=== PATIENT | female | born 1955 | race American Indian/Alaskan Native ===

== ENCOUNTER 2016-09-26 17:30 | Emergency (ER) | payer MEDICAID ==
[2016-09-26 17:39] VITALS: BP 160/85; PULSE 95; RESP 16; TEMP 98.7; O2SAT 100
--- NOTE | 2016-09-26 18:19 | ED PDOC ---
HPI: General Adult Time Seen by Provider: 09/26/16 18:00 Chief Complaint (Nursing): Finger,Hand,&Wrist History Per: Patient (Swelling lower ext bilat right>left x 4 days. Denies chest pain or SOB. Chills but no fever. Intermittent calf pain. Has had intermittent left hand numbness but none today.) Onset/Duration Of Symptoms: Days (4) Current Symptoms Are (Timing): Still Present Severity: Mild Pain Scale Rating Of: 2 Past Medical History Vital Signs: Last Vital Signs Temp 98.7 F 09/26/16 17:35 Pulse 95 H 09/26/16 17:35 Resp 16 09/26/16 17:35 BP 160/85 H 09/26/16 17:35 Pulse Ox 100 09/26/16 18:20 - Medical History PMH: Asthma, HTN, Hyperlipidemia, Hyperthyroidism, Hypothyroidism - Family History Family History: States: Unknown Family Hx - Home Medications Home Medications: Ambulatory Orders Medication Instructions Recorded Albuterol HFA [Ventolin HFA 90 2 puff IH Q4 PRN #1 inh 06/08/16 mcg/actuation (8 g)] Azithromycin [Z-Shaheen] 250 mg PO DAILY #6 tab 06/08/16 Prednisone 50 mg PO DAILY #5 tablet 06/08/16 - Allergies Allergies/Adverse Reactions: Allergies Allergy/AdvReac Type Severity Reaction Status Date / Time No Known Allergies Allergy Verified 09/26/16 17:34 Review of Systems ROS Statement: Except As Marked, All Systems Reviewed And Found Negative Constitutional: Positive for: Chills. Negative for: Fever Cardiovascular: Negative for: Chest Pain Respiratory: Negative for: Shortness of Breath Musculoskeletal: Positive for: Leg Pain, Other (leg swelling) Physical Exam - Reviewed Nursing Documentation Reviewed: Yes Vital Signs Reviewed: Yes - Physical Exam Appears: Positive for: Non-toxic, No Acute Distress Head Exam: Positive for: ATRAUMATIC, NORMAL INSPECTION, NORMOCEPHALIC Skin: Positive for: Normal Color, Warm, DRY Eye Exam: Positive for: EOMI, Normal appearance, PERRL ENT: Positive for: Normal ENT Inspection Neck: Positive for: Normal, Painless ROM Cardiovascular/Chest: Positive for: Regular Rate, Rhythm Respiratory: Positive for: CNT, Normal Breath Sounds Gastrointestinal/Abdominal: Positive for: Normal Exam, Bowel Sounds, Soft Back: Positive for: Normal Inspection Extremity: Positive for: Normal ROM, Swelling (Minimally swelling right foot. No calf tenderness No erythema or warmth) Neurologic/Psych: Positive for: Alert, Oriented. Negative for: Motor/Sensory Deficits - Laboratory Results Result Diagrams: 09/26/16 18:30 09/26/16 18:30 - ECG O2 Sat by Pulse Oximetry: 100 Disposition - Clinical Impression Clinical Impression: Edema - Patient ED Disposition Is Patient to be Admitted: Transfer of Care - Disposition Disposition: Transfer of Care Disposition Time: 19:09 Condition: FAIR Patient Signed Over To: Babak Florez
[2016-09-26 18:46] LABS: BASO # 0.1 K/uL (0.0-0.2); BASO % 1.4 % (0.0-2.0); EOS # 0.2 K/uL (0.0-0.7); EOS % 2.5 % (0.0-4.0); HEMATOCRIT 33.1 % (34.0-47.0); LYMPH # 2.6 K/uL (1.0-4.3); LYMPH % 34.1 % (20.0-40.0); MEAN CELL VOLUME 89.4 fl (81.0-99.0); MEAN CORPUSCULAR HEMOGLOBIN 29.5 pg (27.0-31.0); MEAN PLATELET VOLUME 8.4 fl (7.2-11.7); MONO # 0.7 K/uL (0.0-0.8); MONO % 9.2 % (0.0-10.0); NEUT % 52.8 % (50.0-75.0); NRBC % 0.1 % (0.0-0.0); RED CELL DISTRIBUTION WIDTH 13.2 % (11.5-14.5); WHITE BLOOD COUNT 7.5 K/uL (4.8-10.8)
--- NOTE | 2016-09-26 18:49 | RAD ---
HISTORY: Lower extremity swelling COMPARISON: Chest x-ray performed 06/08/16 TECHNIQUE: Chest PA and lateral FINDINGS: LUNGS: No focal consolidation. Please note that chest x-ray has limited sensitivity for the detection of pulmonary masses. PLEURA: No significant pleural effusion identified. No definite pneumothorax . CARDIOVASCULAR: The cardiomediastinal silhouette appears within normal limits of size. OSSEOUS STRUCTURES: No acute osseous abnormality identified. VISUALIZED UPPER ABDOMEN: Unremarkable. OTHER FINDINGS: None. IMPRESSION: No focal consolidation, significant pleural effusion, or definite pneumothorax identified.
[2016-09-26 18:58] LABS: ALB/GLOB RATIO 1.1 (1.0-2.1); ALKALINE PHOSPHATASE 95 U/L (38-126); ALT/SGPT 23 U/L (9-52); AST/SGOT 23 U/L (14-36); BILIRUBIN,TOTAL 0.3 mg/dl (0.2-1.3); BLOOD UREA NITROGEN 18 mg/dl (7-17); CALCIUM 10.3 mg/dL (8.4-10.2); CARBON DIOXIDE 29 mmol/L (22-30); CHLORIDE 98 mmol/L (98-107); GFR AFRICAN-AMERICAN > 60; GLUCOSE,RANDOM 110 mg/dL (65-105); POTASSIUM 3.1 MMOL/L (3.6-5.0); SODIUM 140 mmol/l (132-148); TOTAL PROTEIN 8.5 G/DL (6.3-8.2)
[2016-09-26] MEDS ORDERED: Potassium Chloride 20 mEq ER Tab PO ONE ×2 (19:08→19:13)
--- NOTE | 2016-09-26 20:19 | US ---
EXAM: US Duplex Bilateral Lower Extremity Veins CLINICAL HISTORY: 61 years old, female; Signs and symptoms; Swelling of limb; Lower extremity, bilateral; Additional info: Swelling lower ext TECHNIQUE: Real-time ultrasound scan of the veins of the bilateral lower extremities with color Doppler flow, spectral waveform analysis and compression. EXAM DATE/TIME: 09/26/2016 6:15 PM COMPARISON: No relevant prior studies available. FINDINGS: Normal-appearing compressibility, flow and augmentation response are seen within the common femoral, femoral and popliteal veins bilaterally. Flow is seen in the posterior tibial veins, in the bilateral calves. IMPRESSION: No evidence of deep venous thrombosis in either leg.
[2016-09-26] MEDS ORDERED: Lidocaine 1% Inj (20ml) ONE (21:39)
[2016-09-26] MEDS ORDERED: Dexamethasone 4 mg/1 ml ONE (21:39)
--- NOTE | 2016-09-26 22:09 | CP.PCM.CON ---
History of Present Illness - History of Present Illness History of Present Illness: This is a 61 y/o female patient who was seen and evaluated at bedside in the ED after request for podiatry consultation. Patient complains of Right heel and ankle pain (heel pain >> ankle pain) which she states started a few days ago. She denies any trauma to her Right lower extremity. She states that she is unable to bear weight to the Right foot due to the severity of the pain. She states that the pain is the most problematic upon taking the first few steps after waking up in the morning. She states that the pain is now constant, which is why she has trouble weightbearing to her Right foot. She denies any similar symptoms to the contralateral foot. She also complains of bilateral calf pain (R >L). Denies any burning, tingling or numbness in her lower extremities. Denies any other pedal complaints at this time. Past Patient History - Past Social History Smoking Status: Never Smoked - CARDIAC Hx Hypertension: Yes - PULMONARY Hx Asthma: Yes - ENDOCRINE/METABOLIC Hx Hyperthyroidism: Yes Hx Hypothyroidism: Yes - PSYCHIATRIC Hx Substance Use: No - ANESTHESIA Hx Anesthesia: No Meds Home Medications: Home Medication List Medication Instructions Recorded Confirmed Type Naproxen [Naprosyn] 500 mg PO Q12 #14 tab 09/26/16 Rx Allergies/Adverse Reactions: Allergies Allergy/AdvReac Type Severity Reaction Status Date / Time No Known Allergies Allergy Verified 09/26/16 17:34 Physical Exam - Constitutional Appears: Non-toxic, No Acute Distress - Extremities Exam Extremities exam: Positive for: normal capillary refill, pedal edema, tenderness , pedal pulses present - Neurological Exam Neurological exam: Alert, Oriented x3 - Psychiatric Exam Psychiatric exam: Normal Affect, Normal Mood - Skin Skin Exam: Dry, Intact, Normal Color, Warm - Additional Findings Additional findings: Bilateral lower extremity examination: Vascular: DP/PT pulse 2/4; capillary fill time < 3 sec x10; normal temperature gradient; mild edema noted to the Right ankle Neuro: light touch and protective sensation grossly intact bilaterally Derm: no open wounds present; no erythema, no open lesions, no interdigital maceration; no clinical signs of infection noted; mild edema noted to the Right ankle Biomechanical exam: pes planus foot type noted bilaterally with midfoot collapse ; pain elicited upon palpation of the plantar medial calcaneal tubercle of the Right foot; no pain upon palpation of the left heel; gastrocnemius equinus deformity noted bilaterally with restriction of ankle ROM upon knee extension and ankle dorsiflexion beyond 90 degrees upon knee flexion bilaterally; NCSP is 2 degrees valgus bilaterally; no change in arch height noted upon weightbearing and non-weightbearing bilaterally Gait exam: early heel rise noted bilaterally throughout gait cycle; prolonged STJ pronation noted during midstance phase of gait; antalgic gait noted secondary to Right heel pain Results - Vital Signs Recent Vital Signs: Last Vital Signs Temp 98.7 F 09/26/16 17:35 Pulse 95 H 09/26/16 17:35 Resp 16 09/26/16 17:35 BP 160/85 H 09/26/16 17:35 Pulse Ox 100 09/26/16 19:09 - Labs Result Diagrams: 09/26/16 18:30 09/26/16 18:30 Labs: Laboratory Results - last 24 hr 09/26/16 09/26/16 18:30 18:30 WBC 7.5 RBC 3.70 L Hgb 10.9 L Hct 33.1 L MCV 89.4 MCH 29.5 MCHC 33.0 RDW 13.2 Plt Count 340 MPV 8.4 Neut % (Auto) 52.8 Lymph % (Auto) 34.1 [place] % (Auto) 9.2 Eos % (Auto) 2.5 Baso % (Auto) 1.4 Neut # 4.0 Lymph # 2.6 [place] # 0.7 Eos # 0.2 Baso # 0.1 Sodium 140 Potassium 3.1 L Chloride 98 Carbon Dioxide 29 Anion Gap 16 BUN 18 H Creatinine 0.9 Est GFR ( Amer) > 60 Est GFR (Non-Af Amer) > 60 Random Glucose 110 H Calcium 10.3 H Total Bilirubin 0.3 AST 23 ALT 23 Alkaline Phosphatase 95 Total Protein 8.5 H Albumin 4.5 Globulin 4.0 H Albumin/Globulin Ratio 1.1 Assessment & Plan - Assessment and Plan (Free Text) Assessment: 61 y/o female with Right foot plantar fasciitis, secondary to pes planus Plan: Patient seen and evaluated at bedside in the ED Labs and vitals reviewed Biomechanical and gait exam performed Bilateral venous duplex neg for DVT Explained to patient that the cause of her Right heel pain is her pes planus foot type Patient expressed interest in receiving a corticosteroid injection to her Right heel * All risks, benefits and complications described to patient in detail * Patient gave verbal consent. * Injected 2cc of 1% Lidocaine plain and 1cc of dexamethasone phosphate 4mg/ml to the Right heel at the point of maximum tenderness * Applied band-aid to injection site * Patient tolerated procedure well and with no complications Instructed patient on RICE therapy. Instructed patient to perform stretching exercises BID on a daily basis Recommended OTC arch supports for extra comfort Advised patient to wear comfortably sneakers for extra support Patient demonstrated verbal understanding of all instructions given Discussed patient in detail with attending, Dr. Delaney Patient is to follow-up in the [facility] podiatry clinic prn
[2016-09-26] MEDS ORDERED: Dexamethasone 4 mg/1 ml IM ONE (22:15)
--- NOTE | 2016-09-26 23:03 | ED PDOC ---
- Laboratory Results Result Diagrams: 09/26/16 18:30 09/26/16 18:30 - ECG O2 Sat by Pulse Oximetry: 100 (RA) Pulse Ox Interpretation: Normal Medical Decision Making Medical Decision Making: Time: 19:00 --Patient was signed out from Dr. Hardy, pending CT report, reassessment and disposition. Time: 20:19 --Extremity Ultrasound FINDINGS: Normal-appearing compressibility, flow and augmentation response are seen within the common femoral, femoral and popliteal veins bilaterally. Flow is seen in the posterior tibial veins, in the bilateral calves. IMPRESSION: No evidence of deep venous thrombosis in either leg Time: :30 --Patient stated right leg is increasing with pain and inability to bear weight. Steroid INJ was administered. Upon provider reevaluation patient is medically stable, and requires no further treatment in the ED at this time. Patient will be discharged home with Rx for Naprosyn 500 mg. Counseling was provided and all questions were answered regarding diagnosis and need for follow up with podiatry. There is agreement to discharge plan. Return if symptoms persist or worsen. Clinical Impression: Plantar fasciitis of the right foot, edema, and hypokalemia Disposition - Clinical Impression Clinical Impression: Edema, Plantar fasciitis of right foot, Hypokalemia - POA Present On Arrival: None - Disposition Disposition: Routine/Home Disposition Time: 10:30 Condition: FAIR Prescriptions: Naproxen [Naprosyn] 500 mg PO Q12 #14 tab Instructions: Plantar Fasciitis (ED)
--- NOTE | 2016-09-27 10:58 | RAD ---
PROCEDURE: Right Foot Radiographs. HISTORY: pain COMPARISON: None available. FINDINGS: BONES: No acute displaced fracture. JOINTS: No dislocation. SOFT TISSUES: Mild soft tissue swelling. No evidence of radiopaque foreign body. OTHER FINDINGS: None. IMPRESSION: Mild soft tissue swelling. No acute displaced fracture or dislocation identified. If symptoms persist, or if there is continued clinical concern, x-ray follow-up in 7-10 days should be considered.
--- NOTE | 2016-09-30 19:15 | CARD ---
APPROVED REPORT EKG Measurement Heart [id number] <Conclusion> Normal sinus rhythm Left axis deviation Incomplete right bundle branch block Abnormal ECG
== END 2016-09-26 22:35 | disposition home or self-care (01) ==
LOC: H.ER 17:30
DX: M72.2 Plantar fascial fibromatosis (principal); E87.6 Hypokalemia; I45.10 Unspecified right bundle-branch block; M79.89 Other specified soft tissue disorders; R60.0 Localized edema